=== PATIENT | male | born 1955 | race Caucasian/White ===

== ENCOUNTER → 2023-07-08 | Day surgery (SDC) | payer MEDICARE, OTHER ==
[~2023-07-08] MED LIST: ATORVASTATIN CA20 MG PO; CARVEDILOL3.125 MG PO; DEXAMETHASONE SOD PHOS 10 MG/1 ML VIAL ONE; DEXAMETHASONE SOD PHOS INJ 4 MG/ML SDV ONE; FENTANYL CITRATE/PF 100MCG/2 ML INJ ONE; JANTOVEN5 MG; LACTATED RINGER'S 1,000 ML ONE; LIDOCAINE HCL 2% LOCAL INJ 5 ML SDV VIAL INJ ONE; LISINOPRIL10 MG PO; LOVENOX120 MG/0.8 SC; ONDANSETRON HCL INJ 2MG/ML 2ML 2 MG/ML VIAL ONE; PHENYLEPHRINE HCL 1% 10 MG/ML VIAL ONE; PROPOFOL IV EMULSION 10 MG/ML 20 ML VIAL ONE; PROTONIX40 MG/ML; SEVOFLURANE INHAL SOLN 250 ML PEN BTL ONE
[2023-07-08 06:58] LABS: INR 1.17; PROTHROMBIN TIME 15.2 seconds (11.9-14.5)
[2023-07-08 09:25] VITALS: TEMP 97.2
[2023-07-08 09:45] VITALS: BP 119/77; PULSE 72; RESP 16; O2SAT 96
== END | disposition home or self-care (01) ==
LOC: OR 05:26
PROVIDERS: ATTEND Otolaryngology Otolaryngology/Facial Plastic Surgery
DX: H90.3 Sensorineural hearing loss, bilateral (principal); T16.2XXA Foreign body in left ear, initial encounter; H93.12 Tinnitus, left ear; I25.10 Atherosclerotic heart disease of native coronary artery without angina pectoris; I48.91 Unspecified atrial fibrillation; I11.0 Hypertensive heart disease with heart failure; I50.9 Heart failure, unspecified; E78.5 Hyperlipidemia, unspecified; K21.9 Gastro-esophageal reflux disease without esophagitis; Z79.02 Long term (current) use of antithrombotics/antiplatelets; Z79.01 Long term (current) use of anticoagulants; Z79.899 Other long term (current) drug therapy; Z95.810 Presence of automatic (implantable) cardiac defibrillator; Z95.5 Presence of coronary angioplasty implant and graft
CPT/HCPCS: 36415; 69399; 69436; 71046; 85610; 85730; 93005; J1100 ×2; J2001; J2371; J2405; J2704; J3010; J7121